=== PATIENT | male | born 1965 | race Caucasian/White ===

== ENCOUNTER 2023-07-06 12:38 | Outpatient (RCR) | payer BC, SELFPAY | END 2023-09-09 09:48 | disposition home or self-care (01) | LOC: HO.WCC 12:38 | PROVIDERS: PCP Internal Medicine; Referring Provider Internal Medicine; Visit Provider Surgery | DX: L97.811 Non-pressure chronic ulcer of other part of right lower leg limited to breakdown of skin (principal); S81.802A Unspecified open wound, left lower leg, initial encounter; S91.102A Unspecified open wound of left great toe without damage to nail, initial encounter; L03.115 Cellulitis of right lower limb; Q82.0 Hereditary lymphedema; L20.89 Other atopic dermatitis; I10 Essential (primary) hypertension; Z79.2 Long term (current) use of antibiotics; Z79.82 Long term (current) use of aspirin | CPT/HCPCS: 29580; 99203; 99212 ==

== ENCOUNTER 2024-03-08 08:58 | Outpatient (RCR) | payer BC, SELFPAY | END 2024-03-28 08:00 | disposition other institution (70) | LOC: HO.WCC 08:58 | PROVIDERS: Visit Provider Surgery | DX: I87.313 Chronic venous hypertension (idiopathic) with ulcer of bilateral lower extremity (principal); L97.822 Non-pressure chronic ulcer of other part of left lower leg with fat layer exposed; L97.812 Non-pressure chronic ulcer of other part of right lower leg with fat layer exposed; L20.9 Atopic dermatitis, unspecified; I10 Essential (primary) hypertension; F17.210 Nicotine dependence, cigarettes, uncomplicated | CPT/HCPCS: 97597; 97598 ==